=== PATIENT | male | born 2000 | race Caucasian/White ===

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

== ENCOUNTER 2021-03-31 01:10 | Outpatient (CLI) | payer MEDICAID, SELFPAY ==
--- NOTE | 2021-03-31 | DI.US_ITS ---
Exam(s) US RENAL EXAM: US RENAL CLINICAL HISTORY: HYPERTENSION,I10,STRONG FAMILY H/O HEART DISEASE AND HYPERTENSION TECHNIQUE: Ultrasound of both kidneys performed using standard protocol. COMPARISON: No exams were available for comparison FINDINGS: RIGHT KIDNEY: Measures 11.6 cm in length. No cysts evident. Normal cortical thickness and corticomedullary differen tiation .No solid masses No intrarenal calculi nor hydronephrosis. LEFT KIDNEY: Measures 12.1 cm in length. No cysts evident. Normal cortical thickness and corticomedullary differe ntiaion. No solids masses. No intrarenal calculi nor hydonephrosis. URINARY BLADDER: Prevoid volume is 86 cc Postvoid volume is 17 cc No evidence of bladder mass nor diverticuli. Ureterovesical jets: Both identified. Prostate gland measures 2.8 x 3.6 by 3.2 cm, for volume of 17 cc IMPRESSION: 1. No significant ultrasound findings in the kidneys. 2. Postvoid urinary bladder volume is 17 cc. Prostate size minimally prominent. DATA REPOSITORY:
== END 2021-03-31 01:30 ==
PROVIDERS: PCP Family Medicine; Visit Provider Family Medicine
DX: I10 Essential (primary) hypertension (principal)
CPT/HCPCS: 76770

== ENCOUNTER 2022-05-27 01:45 | Outpatient (CLI) | payer MEDICAID, SELFPAY ==
[2022-05-27 10:27] LABS: Anion Gap 10.4 mmol/L (3-11); BUN 20 mg/dL (7-18); CO2 26.6 mmol/L (21.0-32.0); CREATININE 1.1 mg/dL (0.70-1.30); Calcium 9.5 mg/dL (8.5-10.1); Chloride 103 mmol/L (98-107); Estimated GFR 98.56 (mL/min/1.73m2); Glucose 94 mg/dL (74-106); Sodium 140 mmol/L (136-145)
[2022-05-31 15:48] LABS: Renin Activity, Plasma 2.6 ng/mL/h
== END 2022-05-27 01:46 | disposition home or self-care (01) ==
LOC: LBO 01:45
PROVIDERS: PCP Family Medicine; Visit Provider Family Medicine
DX: I10 Essential (primary) hypertension (principal)
CPT/HCPCS: 36415; 80048; 82088; 84244

== ENCOUNTER 2023-01-17 17:43 | Outpatient (REF) | payer MEDICAID, SELFPAY ==
[2023-01-19 14:20] LABS: GC Result Negative (Negative)
[2023-01-19 14:46] LABS: Chlamydia Result Positive (Negative)
== END 2023-01-17 17:44 | disposition home or self-care (01) ==
LOC: LBN 17:43
PROVIDERS: PCP Family Medicine; Visit Provider Nurse Practitioner Family
DX: Z11.3 Encounter for screening for infections with a predominantly sexual mode of transmission (principal)
CPT/HCPCS: 87491; 87591

== ENCOUNTER → 2023-04-22 00:41 | Outpatient (CLI) | payer MEDICAID, SELFPAY ==
--- NOTE | 2023-04-22 10:45 | DI.US_ITS ---
APPROVED REPORT EXAM: Comprehensive 2D, Doppler, and color-flow Echocardiogram Patient Location: Out-Patient Risk Control Field Representative: Allison Art RDCS (AE) Indications: HTN, Assess for structural heart disease Other Information Study Quality: Adequate Conclusion The left ventricular wall thickness and chamber size. Ejection fraction is 59%. Wall motion is nor mal Normal right ventricular size and systolic function Both atria are normal in size There is no structural or hemodynamically significant valvular disease Estimated right ventricular systolic pressure is 17 mmHg Wall motion Left Ventricle The left ventricle is normal size. The left ventricular systolic function is normal. The left ventric ular ejection fraction is within the normal range. There is normal left ventricular wall thickness. T here is normal LV segmental wall motion. There is no ventricular septal defect visualized. LVEF is 5 9%. Right Ventricle The right ventricle is normal size. The right ventricular systolic function is normal. Atria The left atrium size is normal. The right atrium size is normal. The interatrial septum is intact wit h no evidence for an atrial septal defect. Aortic Valve The aortic valve is normal in structure. Aortic valve is trileaflet. There is no aortic valvular sten osis. No aortic regurgitation is present. Mitral Valve The mitral valve is normal in structure. No evidence of mitral valve stenosis. Trace to mild mitral r egurgitation. Tricuspid Valve The tricuspid valve is normal in structure. There is no tricuspid valve stenosis. Trace tricuspid reg urgitation. The RVSP is 16.7 mmHg. Pulmonic Valve The pulmonary valve is normal in structure. There is no pulmonic valvular stenosis. Trace pulmonic re gurgitation. Great Vessels The aortic root is normal in size. The ascending aorta is normal in size. Aortic arch is normal in ca liber. IVC is normal in size and collapses >50% with inspiration. Pericardium There is no pericardial effusion. 2D Dimensions IVSD d PLAX 0.91 cm M: 0.6-1.2 Ao Root d 3.82 cm M: 3.1 - 3.7 LVPW d PLAX 0.89 cm M: 0.6 - 1.2 Ao Asc Diam d 3.31 cm M: 2.6 - 3.4 LVID d PLAX 5.82 cm M: 4.2 - 5.8 LVDs 3.88 cm M: 2.5 - 4.0 LV EF Teichholz 61.2 % FS 33.35 % LV EDV (Teich) 167.6 mL LV ESV (Teich) 65.0 mL M-Mode TAPSE 2.36 cm (M/F) >1.7 Auto EF LV EDV A4C 201.9 mL LV EDV A2C 218.4 mL LV EDV BP 215.7 mL LV ESV A4C 87.2 mL LV ESV A2C 94.9 mL LV ESV BP 91.7 mL LVEF(%) A4C 56.8 % LVEF(%) A2C 56.5 % LVEF(%) BP 57.5 % LV SV A4C 114.7 ml LV SV A2C 123.4 ml LV SV BP 124.0 ml LV CO A4C 6.8 L/min LV CO A2C 8.3 L/min LV CO BP 7.5 L/min HR A4C 59.11 BPM HR A2C 67.04 BPM LV EDV Index (BP) LA Volume LA Length A4C 5.7 cm LA Length A2C 5.6 cm LA Area A4C s 21.94 cm2 LA Area A2C s 22.97 cm2 LA Vol A4C A-L 72.09 mL LA Vol A2C A-L 79.42 mL LA Vol Biplane A-L 75.9 mL LA Vol/BSA A4C A-L LA Vol/BSA A2C A-L LA Vol/BSA BP A-L 33.9 mL/m2 LA Vol A4C MOD 65.1 mL LA Vol A2C MOD 77.0 mL LA Vol BP MOD 70.2 mL RA Volume RA Area A4C 20.8 cm2 RA ESV A4C (A-L) 69.6mL RA Vol/BSA A4C A-L RA Length A4C 5.3 cm RA ESV A4C (MOD) 66.8mL LV Diastology MV E' medial 0.155 (>0.07 m/s) MV E Vmax 0.86 (0.4-1.3 m/s) MV E/E' MED 5.58 (<14) MV A Vmax 0.65 (0.4-1.3 m/s) MV E' lateral 0.193 (>0.1 m/s) E/A Ratio 1.3 MV E/E' LAT 4.48 (<14) MV E' Average 0.174 m/s MV E/E'(average) 4.97 Aortic Valve AoV Vmax 1.28 m/s LVOT Vmax 1.10 m/s AoV Peak Grad 6.6 mmHg LVOT Peak Grad 4.9 mmHg AoV Area (Vmax) 3.28 cm2 LVOT VTI 0.226 m AoV VTI 0.281 m LVOT Mean Grad 2.8 mmHg AoV Mean Dwayne. 0.89 m/s LVOT SV 85.88 mL AoV Mean Grad 3.6 mmHg LVOT Diam s 2.20 cm AoV Area (VTI) 3.05 cm2 Velocity Ratio 0.86 Mitral Valve MV DT 230 (160-240 msec) MV Vmax TIPS 0.96 m/s MV Mean Grad 1.6 (<2mmHg) MV VTI 0.337 m Pulmonary Valve PV Vmax 1.24 (0.5-1.5 m/s) RVOT Vmax 1.14 m/s PV Peak Grad 6.2 mmHg RVOT Peak Gr. 5.2 mmHg PV Mean Dwayne 0.87 m/s RVOT VTI 0.204 m PV Mean Grad 3.5 mmHg RVOT Mean Gr. 2.8 mmHg Tricuspid Valve RA Pressure 3.00 mmHg TR Vmax 1.85 m/s TV S' 0.16 m/s TR Peak Grad 13.7 mmHg RVSP (TR) 16.7 mmHg
== END ==
PROVIDERS: PCP Family Medicine; Visit Provider Family Medicine
DX: I10 Essential (primary) hypertension (principal)
CPT/HCPCS: 93306

== ENCOUNTER 2023-06-07 20:50 | Outpatient (REF) | payer MEDICAID, SELFPAY ==
[2023-06-07 16:32] LABS: Anion Gap 8.8 mmol/L (3-11); BUN 16 mg/dL (7-18); CO2 28.2 mmol/L (21.0-32.0); CREATININE 0.9 mg/dL (0.70-1.30); Calcium 9.4 mg/dL (8.5-10.1); Calculated LDL 88 mg/dL (<100); Chloride 104 mmol/L (98-107); Cholesterol 170 mg/dL (<200); Estimated GFR 124.61 (mL/min/1.73m2); Glucose 87 mg/dL (74-106); HDL Cholesterol 58 mg/dL (40-60); Potassium 4.2 mmol/L (3.5-5.1); Sodium 141 mmol/L (136-145); Triglyceride 122 mg/dL (<150)
[2023-06-07 22:48] LABS: Hepatitis C Ab w Rflx HCV PCR Negative (Negative)
[2023-06-07 22:57] LABS: HIV-1/2 Ag & Ab Screen Negative (Negative)
== END 2023-06-07 20:51 | disposition home or self-care (01) ==
LOC: NCHCN 20:50
PROVIDERS: PCP Family Medicine; Visit Provider Family Medicine
DX: I10 Essential (primary) hypertension (principal); Z13.220 Encounter for screening for lipoid disorders; Z11.4 Encounter for screening for human immunodeficiency virus [HIV]; Z11.59 Encounter for screening for other viral diseases
CPT/HCPCS: 80048; 80061; 86803; 87389

== ENCOUNTER 2024-10-30 17:42 | Outpatient (REF) | payer SELFPAY ==
[2024-10-30 22:06] LABS: ALT 24 U/L (16-63); AST 23 U/L (15-37); Albumin 4.5 g/dL (3.4-5.0); Alkaline Phosphatase 58 U/L (46-116); Anion Gap 4.9 mmol/L (3-11); BUN 15 mg/dL (7-18); Bilirubin, Total 0.6 mg/dL (0.2-1.0); CO2 30.1 mmol/L (21.0-32.0); Calcium 9.8 mg/dL (8.5-10.1); Chloride 103 mmol/L (98-107); Estimated GFR 108.46 (mL/min/1.73m2); Glucose 107 mg/dL (74-106); Potassium 4.3 mmol/L (3.5-5.1); Sodium 138 mmol/L (136-145); Total Protein 7.2 g/dL (6.4-8.2)
== END 2024-10-30 17:43 | disposition home or self-care (01) ==
LOC: NCHCN 17:42
PROVIDERS: PCP Family Medicine; Visit Provider Nurse Practitioner Family
DX: I10 Essential (primary) hypertension (principal)
CPT/HCPCS: 80053